=== PATIENT | male | born 1950 | race Caucasian/White ===

== ENCOUNTER 2017-03-08 09:15 | Emergency (ER) | payer MEDICARE, BC ==
[2017-03-08] MEDS ORDERED: Cyclobenzaprine 10 MG Tab PO ONE (10:08)
[2017-03-08] MEDS ORDERED: HYDROmorphone 1 MG/ML Syringe IM ONE (10:08)
--- NOTE | 2017-03-08 10:13 | EDM.PDOC ---
[id number]: BACK PAIN Time Seen by Provider: 03/08/17 10:09 Source: Reports: Patient History Limitations: Reports: No limitations - History of Present Illness INITIAL COMMENTS - FREE TEXT/NARRATIVE: pt ijured his back on February 19 and he was getting better. He retwisted it and he is now very uncomfortable. He was seen at [facility] and scheduled for PT . He is now so tight that he is not able to walk. His discomfort has increased markedly. Timing/Duration: Reports: Day(s):, Getting worse, Other ( PT seemed to make the pain worse. ) Location: Reports: other ( The pain is accross his lower back. It does not radiate down his legs. ) Quality: Reports: [address]: home Context: Reports: lifting, bending, other ( twisted the wrong way. ) - Related Data Allergies/ADRs: Allergies Allergy/AdvReac Type Severity Reaction Status Date / Time No Known Allergies Allergy Verified 03/08/17 09:48 Home Meds: Home Meds Simvastatin [Zocor] 20 mg PO DAILY 07/23/13 [History] Doxazosin [Doxazosin Mesylate] 4 mg PO DAILY 03/08/17 [History] Escitalopram Oxalate [Escitalopram Oxalate] 40 mg PO DAILY 03/08/17 [History] FLUoxetine [PROzac] 20 mg PO DAILY 03/08/17 [History] Methocarbamol [Robaxin] 500 mg PO QID 03/08/17 [History] Past Medical History - Past Health History Medical/Surgical History: Denies Medical/Surgical History Musculoskeletal History: Reports: Fracture Other Musculoskeletal History: right wrist fx 2009 Social & Family History - Family History Family Medical History: Noncontributory - Tobacco Use Smoking Status *Q: Never Smoker - Caffeine Use Caffeine Use: Reports: None - Alcohol Use Days Per Week of Alcohol Use: 0 - Recreational Drug Use Recreational Drug Use: No - Living Situation & Occupation Living situation: Reports: , with spouse Occupation: retired (Retired schoolteacher) ED ROS GENERAL - Review of Systems Review Of Systems: See Below Constitutional: Reports: no symptoms HEENT: Reports: No symptoms Respiratory: Reports: No Symptoms Cardiovascular: Reports: No symptoms Endocrine: Reports: no symptoms GI/Abdominal: Reports: No symptoms : Reports: no symptoms Musculoskeletal: Reports: other ( acute lower back pain, PT seemed to make it worse. ) ED EXAM,LOWER BACK PAIN/INJURY - Physical Exam Exam: See Below Text/Narrative:: pt arrived with acute lower back pain. More on the rt side. Exam Limited By: No limitations General Appearance: alert, anxious, severe distress Ears: normal TMs Nose: normal inspection Throat/Mouth: Normal inspection Head: atraumatic Neck: normal inspection Respiratory/Chest: no respiratory distress Cardiovascular: regular rate, rhythm GI/Abdominal: soft, non tender Back Exam: paraspinal tenderness, other (more on the rt side. ) Extremities: normal inspection Neurological: alert Psychiatric: anxious Course - Vital Signs Last Recorded V/S: Last Vital Signs Temp 36.2 C 03/08/17 09:53 Pulse 46 L 03/08/17 11:35 Resp 16 03/08/17 11:35 BP 122/60 03/08/17 11:35 Pulse Ox 97 03/08/17 11:35 - Orders/Labs/Meds Meds: Medications Discontinued Medications Generic Name Dose Route Start Last Admin Trade Name Bryon PRN Reason Stop Dose Admin Cyclobenzaprine HCl 10 mg 03/08/17 10:08 03/08/17 10:12 Flexeril PO 03/08/17 10:09 10 mg ONETIME ONE Administration Hydromorphone HCl 1 mg 03/08/17 10:08 03/08/17 10:12 Dilaudid IM 03/08/17 10:09 1 mg ONETIME ONE Administration Sodium Chloride 1,000 mls @ 999 mls/hr 03/08/17 11:15 03/08/17 11:35 Normal Saline IV 999 mls/hr ASDIRECTED DAVID Administration Ondansetron HCl 4 mg 03/08/17 11:15 Zofran IVPUSH 03/08/17 11:16 ONETIME ONE - Re-Assessments/Exams Free Text/Narrative Re-Assessment/Exam: 03/08/17 11:18 Pt arrived with acute pain in his lower back. He was given 1 mg of dilaudid im. He went to xray and when he got back he was feeling lite headed and he was diaphoretic. An Iv was started and fluids were run. He did get relief of his pain. Departure - Departure Time of Disposition: 13:15 Disposition: Home, Self-Care 01 Condition: fair Clinical Impression: Lumbar back sprain Instructions: Low Back Sprain With Rehab-SportsMed Referrals: PCP,None [Primary Care Provider] - Forms: ED Department Discharge Care Plan Goals: ice or heat to the area. No therapy for the next 2 days then resume, flexeril 10mg bid to relax muscles. motrin 600mg tid, norco 5/325 q6h prn for severe pain If not improving see regular Dr in 4-5 days. stop the metacarmbinol
[2017-03-08] MEDS ORDERED: Sodium Chloride 0.9% 1,000 ML IV SCH (11:15)
[2017-03-08] MEDS ORDERED: Ondansetron 4 MG/2 ML SDV IVPUSH ONE (11:15)
[2017-03-08 11:39] VITALS: BP 122/60
--- NOTE | 2017-03-08 12:18 | CR ---
5 lumbar type vertebral bodies. Advanced disc height loss L5-S1 and L4-5. No acute compression defor mity. Facet arthropathy lower lumbar spine. Slight anterolisthesis L4-5 on extension. There is mild height loss at T10 vertebral body only visualized on the extension view.
== END 2017-03-08 12:55 | disposition home or self-care (01) ==
LOC: JP.ED 09:15
DX: S33.5XXA Sprain of ligaments of lumbar spine, initial encounter (principal); Z79.899 Other long term (current) drug therapy; Z98.890 Other specified postprocedural states; X50.9XXA Other and unspecified overexertion or strenuous movements or postures, initial encounter; Y92.009 Unspecified place in unspecified non-institutional (private) residence as the place of occurrence of the external cause
CPT/HCPCS: 72110; 96360; 99284; A9270; J1170; J7040

== ENCOUNTER 2022-09-15 07:59 | Day surgery (SDC) | payer BC, MEDICARE ==
[2022-09-15] MEDS: Sodium Chloride 0.9% 10 ML Syringe FLUSH PRN (08:42)
[2022-09-15 09:41] VITALS: BP 164/70; PULSE 74
== END 2022-09-15 09:44 | disposition home or self-care (01) ==
LOC: JP.SDS 07:59
PROVIDERS: ATTEND Ophthalmology
DX: H25.11 Age-related nuclear cataract, right eye (principal)
CPT/HCPCS: 66984; J3490

== ENCOUNTER 2022-09-29 08:02 | Day surgery (SDC) | payer MEDICARE ==
[2022-09-29] MEDS ORDERED: Sodium Chloride 0.9% 10 ML Syringe FLUSH PRN (09:00)
[2022-09-29 09:35] VITALS: BP 138/60; PULSE 57
== END 2022-09-29 09:45 | disposition home or self-care (01) ==
LOC: JP.SDS 08:02
PROVIDERS: ATTEND Ophthalmology
DX: H25.12 Age-related nuclear cataract, left eye (principal)
CPT/HCPCS: 66984; J3490